=== PATIENT | male | born 1995 | race Caucasian/White ===

== ENCOUNTER 2016-10-06 23:20 | Emergency (ER) | payer MEDICAID ==
[2016-10-06 23:27] VITALS: BP 151/69; PULSE 121; RESP 17; TEMP 98.6; O2SAT 93
--- NOTE | 2016-10-07 00:09 | EDPHY ---
H & P Stated Complaint: pressure on right collar bone; feels like it is blocking off blood flow Time Seen by Provider: 10/06/16 23:49 HPI/ROS: HPI The patient presents with 2 months of pain in his right clavicle which he describes as a pressure-like sensation, it is intermittent. It is moderate in severity. He takes ibuprofen with some relief. He was evaluated in [place] where he moved for short period of time with an x-ray and some blood work that was all unremarkable. He says the symptoms were triggered tonight after plating of video game on his bed on the computer for about an hour. He describes a sensation of his sternum pushing upwards and this exerting pressure on his clavicle. He says he has been using heroin and methamphetamine intermittently for the last 2 months, his last use was about 1 week ago he thinks. He uses heroin IV and shot into his arms only. He has a primary care doctor appointment [facility] in 2 days. REVIEW OF SYSTEMS Constitutional: No fever, no chills. Eyes: No discharge. ENT: No sore throat. Cardiovascular: No chest pain, no palpitations. Respiratory: No cough, no shortness of breath. Gastrointestinal: No abdominal pain, no vomiting. Genitourinary: No hematuria. Musculoskeletal: No back pain. Skin: No rashes. Neurological: No headache. PMHx: Healthy, on Vyvanse for attention deficit hyperactivity disorder Soc Hx: From [place] originally, occasional tobacco and alcohol use, methamphetamine and heroin abuse FHx: PHYSICAL General Appearance: Alert, no distress Eyes: Pupils equal and round no pallor or injection ENT, Mouth: Mucous membranes moist Respiratory: There are no retractions, lungs are clear to auscultation Cardiovascular: Regular rate and rhythm, 2+ radial pulses Gastrointestinal: Abdomen is soft and non-tender, no masses, bowel sounds normal Neurological: A&O, moves all extremities, sensation intact to light touch Skin: Warm and dry, no rashes Musculoskeletal: Neck is supple non tender, clavicles are symmetric with no tenderness, sternum is nontender, full range of motion of shoulders without difficulty Extremities: symmetrical, full range of motion Psychiatric: Patient is oriented X 3, there is no agitation Source: Patient Exam Limitations: No limitations - Personal History Current Tetanus/Diphtheria Vaccine: No - Medical/Surgical History Hx Asthma: No Hx Chronic Respiratory Disease: No Hx Diabetes: No Hx Cardiac Disease: No Hx Renal Disease: No Hx Cirrhosis: No Hx Alcoholism: No Hx HIV/AIDS: No Hx Splenectomy or Spleen Trauma: No Other PMH: PMHx: ADHD. PSHx: denies - Social History Smoking Status: Current every day smoker Constitutional: Initial Vital Signs Temperature (C) 37 C 10/06/16 23:22 Heart Rate 121 H 10/06/16 23:22 Respiratory Rate 17 10/06/16 23:22 Blood Pressure 151/69 H 10/06/16 23:22 O2 Sat (%) 93 10/06/16 23:22 O2 Delivery Mode Room Air Allergies/Adverse Reactions: No Known Allergies Allergy (Unverified 10/06/16 23:22) Home Medications: Medication Instructions Recorded Adderall 10 MG (*) 10/06/16 Medical Decision Making - Diagnostics Imaging: Chest x-ray two view shows no clavicle fracture no pneumothorax, interpreted by me, radiology interpretation is pending. ED Course/Re-evaluation: I discussed the patient's normal chest x-ray with him. He was quite disappointed to hear there is not a problem with his clavicles and wanted to view the x-ray himself to confirm this. He is quite fixated that there is some sort of problem with his bones and he needs to "pop them back into place". I have advised him to stop applying pressure to his clavicle in his ribs. He can use heat as needed for any discomfort and I have encouraged ibuprofen. I had a long discussion with him about stopping amphetamines, both methamphetamine and Vyvanse to see if this helps his symptoms, because I suspect this is a delusion related to amphetamine use. He has primary care follow-up in 2 days and I will discharge him with plans for him to be seen then. He left the emergency room prior to receiving his discharge paperwork. Differential Diagnosis: This is a 21-year-old male with history of attention deficit hyperactivity disorder, recent drug use who presents with sensation that right clavicle as exerting pressure on his chest. On exam, he is quite anxious appearing, he does not have any asymmetry of his clavicles or any signs of trauma. He has good pulses in his arms and normal range of motion. Differential diagnosis includes methamphetamine abuse, clavicular fracture, less likely thoracic outlet syndrome. Departure - Departure Disposition: Home, Routine, Self-Care Clinical Impression: Clavicle pain Condition: Good Instructions: Methamphetamine Abuse (ED) Additional Instructions: I recommend that you stop using methamphetamine and start titrating down your Vyvanse in concert with your primary care doctor. I have some concerns that your symptoms may be related to amphetamine use. Please follow-up with your doctor in 2 days as planned. Referrals: Porfirio Mckoy MD [Primary Care Provider] - As per Instructions
== END 2016-10-07 00:31 | disposition home or self-care (01) ==
DX: M25.511 Pain in right shoulder (principal); F17.200 Nicotine dependence, unspecified, uncomplicated